=== PATIENT | male | born 1990 | race African-American/Black ===

== ENCOUNTER 2024-03-10 10:40 | Emergency (ER) | payer OTHER | END 2024-03-10 13:56 | disposition home or self-care (01) | LOC: MW.ED 10:40 | DX: S16.1XXA Strain of muscle, fascia and tendon at neck level, initial encounter (principal); S39.012A Strain of muscle, fascia and tendon of lower back, initial encounter; Z79.899 Other long term (current) drug therapy; Z75.8 Other problems related to medical facilities and other health care; V89.2XXA Person injured in unspecified motor-vehicle accident, traffic, initial encounter | CPT/HCPCS: 72125; 72125-26; 72131; 72131-26; 99284 ==